=== PATIENT | male | born 1995 | race Two or more races ===

== ENCOUNTER 2021-03-02 02:54 | Emergency (ER) | payer OTHER ==
[~2021-03-02] VITALS: Ht 160 cm; Wt 53.5 kg
[2021-03-02] MEDS ORDERED: ONDANSETRON HCL INJ 2MG/ML 2ML 2 MG/ML VIAL IV STA (03:52)
[2021-03-02] MEDS ORDERED: FAMOTIDINE 20 MG/2 ML VIAL IV STA (03:52)
[2021-03-02] MEDS ORDERED: SODIUM CHLORIDE 0.9% 1000ML 1,000 ML IV SCH (04:00)
[2021-03-02] MEDS ORDERED: FAMOTIDINE 20 MG/2 ML VIAL IV ONE (04:11)
[2021-03-02] MEDS ORDERED: SODIUM CHLORIDE 0.9% 1000ML 1,000 ML ONE (04:11)
[2021-03-02] MEDS ORDERED: ONDANSETRON HCL INJ 2MG/ML 2ML 2 MG/ML VIAL ONE ×2 (04:11→04:12)
[2021-03-02] MEDS ORDERED: IOPAMIDOL 370 MG/ML 200 ML INFUS..BTL INJ ONE (04:15)
[2021-03-02] MEDS ORDERED: SODIUM CHLORIDE 0.9% 50ML 50 ML ONE (04:15)
[2021-03-02] MEDS ORDERED: DICYCLOMINE HCL 20 MG TAB PO ONE (05:45)
[2021-03-02] MEDS ORDERED: DICYCLOMINE HCL 10 MG CAP ONE (05:54)
[2021-03-02 05:59] VITALS: BP 130/90
[2021-03-02] MEDS ORDERED: DICYCLOMINE HCL 10 MG CAP PO ONE (06:00)
[2021-03-02] MEDS ORDERED: ONDANSETRON ODT4 MG PO (06:00)
[2021-03-02] MEDS ORDERED: FAMOTIDINE40 MG PO (06:01)
[2021-03-02] MEDS ORDERED: DICYCLOMINE HCL20 MG PO (06:01)
[2021-03-02] MEDS ORDERED: CIPRO500 MG PO (06:02)
== END 2021-03-02 05:59 | disposition home or self-care (01) ==
LOC: FSED 03:50
DX: R11.2 Nausea with vomiting, unspecified (principal); K52.9 Noninfective gastroenteritis and colitis, unspecified; K29.70 Gastritis, unspecified, without bleeding; R10.84 Generalized abdominal pain; R50.9 Fever, unspecified
CPT/HCPCS: 74177; 80048; 80076; 81003; 85025; 96374; 96376; 99284; J2405; J7030; Q9967